=== PATIENT | female | born 1980 | race Two or more races ===

== ENCOUNTER 2019-03-22 08:15 | Day surgery (SDC) | payer OTHER ==
[~2019-03-22 08:15] MED LIST: Bupivacaine 0.5% 30 ML SDV ONE; Lactated Ringers 1,000 ML IV SCH
--- NOTE | 2019-03-22 08:35 | PCM.PREANE ---
Preanesthetic Assessment - Anesthesia/Transfusion/Family Hx Anesthesia History: Prior Anesthesia Without Reaction Type of Anesthesia Reaction: Allergy Family History of Anesthesia Reaction: No Transfusion History: No Prior Transfusion(s) Intubation History: Unknown - Review of Systems General: No Symptoms Pulmonary: No Symptoms Cardiovascular: No Symptoms Gastrointestinal: No Symptoms Neurological: No Symptoms Other: Reports: None - Physical Assessment NPO Status Date: 03/21/19 Vital Signs: Last Vital Signs Temp 97.5 F 03/22/19 08:30 Pulse 85 03/22/19 08:30 Resp 14 03/22/19 08:30 BP 102/60 03/22/19 08:30 Pulse Ox 100 03/22/19 08:30 Height: 5 ft 10 in Weight: 69.4 kg ASA Class: 2 Mental Status: Alert & Oriented x3 Airway Class: Mallampati = 1 Dentition: Reports: Normal Dentition - Allergies Allergies/Adverse Reactions: Allergies Allergy/AdvReac Type Severity Reaction Status Date / Time No Known Allergies Allergy Verified 03/21/19 08:01 - Blood Blood Available: No - Anesthesia Plan Pre-Op Medication Ordered: None - Acknowledgements Anesthesia Type Planned: General Anesthesia Pt an Appropriate Candidate for the Planned Anesthesia: Yes Alternatives and Risks of Anesthesia Discussed w Pt/Guardian: Yes Pt/Guardian Understands and Agrees with Anesthesia Plan: Yes Additional Comments: PMH: none PLAN: GA, ett if prone PreAnesthesia Questionnaire - Past Health History Medical/Surgical History: Denies Medical/Surgical History HEENT History: Reports: None Cardiovascular History: Reports: None Respiratory History: Reports: None Gastrointestinal History: Reports: None Genitourinary History: Reports: None 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: Musculoskeletal History: Reports: None Neurological History: Reports: None Psychiatric History: Reports: None Endocrine/Metabolic History: Reports: None Hematologic History: Reports: None Immunologic History: Reports: None Oncologic (Cancer) History: Reports: None Dermatologic History: Reports: None, Other (See Below) - Past Surgical History Head Surgeries/Procedures: Reports: None HEENT Surgical History: Reports: None Cardiovascular Surgical History: Reports: None Respiratory Surgical History: Reports: None GI Surgical History: Reports: Bariatric Procedure, Other (See Below) Other GI Surgeries/Procedures: previous I&D of left buttock abscess Female Surgical History: Reports: Section Endocrine Surgical History: Reports: None Neurological Surgical History: Reports: None Musculoskeletal Surgical History: Reports: None Oncologic Surgical History: Reports: None Dermatological Surgical History: Reports: None - SUBSTANCE USE Smoking Status *Q: Never Smoker Recreational Drug Use History: No - HOME MEDS Home Medications: Home Meds . [No Known Home Meds] 03/21/19 [History] - CURRENT (IN HOUSE) MEDS Current Meds: Current Medications Lactated Ringer's (Ringers, Lactated) 1,000 mls @ 125 mls/hr IV ASDIRECTED JS Discontinued Medications Bupivacaine HCl (Marcaine 0.5%) Confirm Administered Dose 30 ml .ROUTE .STK-MED ONE Stop: 03/22/19 07:21
[2019-03-22] MEDS ORDERED: fentaNYL 100 MCG/2 ML SDV ONE ×2 (10:24→11:48)
[2019-03-22] MEDS ORDERED: Lidocaine 2% 5 ML SDV ONE (10:24)
[2019-03-22] MEDS ORDERED: Midazolam 1 MG/ML 2 ML SDV ONE (10:24)
[2019-03-22] MEDS ORDERED: Propofol 200 MG/20 ML SDV ONE (10:25)
[2019-03-22] MEDS ORDERED: ePHEDrine 50 MG/ML SDV ONE (11:01)
[2019-03-22] MEDS ORDERED: Ondansetron 4 MG/2 ML SDV ONE (11:14)
[2019-03-22] MEDS ORDERED: Ondansetron 4 MG/2 ML SDV IVPUSH PRN (11:21)
[2019-03-22] MEDS ORDERED: Acetaminophen/HYDROcodone 325-5 MG Tab PO PRN (11:21)
[2019-03-22] MEDS ORDERED: Morphine 10 MG/ML Syringe IVPUSH PRN (11:21)
--- NOTE | 2019-03-22 11:24 | PCM.OPNOTE ---
- General Post-Op/Procedure Note Date of Surgery/Procedure: 03/22/19 Operative Procedure(s): Incision and drainage recurrent right perineal abscess Pre Op Diagnosis: Recurrent right perineal abscess Post-Op Diagnosis: Same Anesthesia Technique: General LMA (ASA II) Primary Surgeon: Herb Brenner Fluid Replacement, Intraop: 1,000 EBL in mLs: 10 Condition: Good Free Text/Narrative:: DICTATION 237661 CPT CODE 05728
[2019-03-22] MEDS ORDERED: Lactated Ringers 1,000 ML IV SCH (11:30)
[2019-03-22] MEDS ORDERED: fentaNYL 100 MCG/2 ML SDV IVPUSH PRN (11:36)
--- NOTE | 2019-03-22 12:19 | PCM.POSTAN ---
POST ANESTHESIA ASSESSMENT - MENTAL STATUS Mental Status: Alert, Oriented - VITAL SIGNS Vital Signs: Last Vital Signs Temp 97.2 F 03/22/19 11:24 Pulse 70 03/22/19 12:00 Resp 12 03/22/19 12:00 BP 103/63 03/22/19 12:00 Pulse Ox 99 03/22/19 12:00 - RESPIRATORY Respiratory Status: Respiratory Rate WNL, Airway Patent, O2 Saturation Stable - CARDIOVASCULAR CV Status: Pulse Rate WNL, Blood Pressure Stable - GASTROINTESTINAL GI Status: No Symptoms - POST OP HYDRATION Hydration Status: Adequate & Stable
--- NOTE | 2019-03-22 13:14 | OR ---
SURGEON: Herb Brenner M.D. DATE OF PROCEDURE: 03/22/2019 OPERATION PERFORMED: Incision and drainage of recurrent right perineal abscess. PRIMARY SURGEON: Herb Brenner M.D. ANESTHESIA: General LMA. ASA CLASSIFICATION: II. PREOPERATIVE DIAGNOSIS: Recurrent perineal abscess. POSTOPERATIVE DIAGNOSIS: Recurrent perineal abscess. ESTIMATED BLOOD LOSS: 10 mL. INTRAOPERATIVE FLUID REPLACEMENT: 1000 mL of crystalloid. DESCRIPTION OF PROCEDURE: The patient was taken to the operating room, placed on the operating table in the supine position. Time-out was called for appropriate identification of the patient and procedure. Following satisfactory attainment of general anesthesia with placement of an LMA, the patient was positioned in the lithotomy position with her legs well supported in the [place] stirrups. The perineum was then prepped with Betadine solution. Sterile drapes were applied. Probe was placed into the cutaneous opening and it did track superiorly and medially. The skin incision was then opened up and I was able to slide a groove director in which does extend even farther. The incision was opened up for approximately 2 to 2- 1/2 inches. Hemostasis was obtained with the use of electrocautery. There was a moderate amount of granulation tissue present. This was curetted out and debrided. There was no purulent drainage noted today. A 1/4 inch [place] drain was then brought to the operating table and moistened. This was passed into the defect and then secured to the skin with a 3-0 nylon suture. Wound was inspected for hemostasis. No other bleeding was noted. The wound was then dressed with sterile pads and mesh panties. The patient tolerated the procedure well. Sponge, needle, and instrument counts were all correct. Following emergence from anesthesia and extubation, the patient was taken to recovery room in stable condition. MIKY / LADONNA /[id number]
--- NOTE | 2019-03-22 13:47 | PCM48HPAN ---
Post Anesthesia Note - EVALUATION WITHIN 48HRS OF ANESTHETIC Vital Signs in Normal Range: Yes Patient Participated in Evaluation: Yes Respiratory Function Stable: Yes Airway Patent: Yes Cardiovascular Function Stable: Yes Hydration Status Stable: Yes Pain Control Satisfactory: Yes Nausea and Vomiting Control Satisfactory: Yes Mental Status Recovered: Yes Vital Signs: Last Vital Signs Temp 97.9 F 03/22/19 12:15 Pulse 67 03/22/19 13:00 Resp 14 03/22/19 13:00 BP 109/64 03/22/19 13:00 Pulse Ox 100 03/22/19 13:00
== END 2019-03-22 13:35 | disposition home or self-care (01) ==
LOC: MW.SDS 08:15
PROVIDERS: ATTEND Surgery
DX: K61.0 Anal abscess (principal)
CPT/HCPCS: 46050; 81025; A9270; J2001; J2250; J2405; J2704; J3010; J3490; J7120